=== PATIENT | female | born 1960 | race Native Hawaiian/Other Pacific Islander ===

== ENCOUNTER → 2016-11-05 | Outpatient (CLI) | payer MEDICARE, OTHER ==
[~2016-11-05] MED LIST: AMLO-511 PO; CARV6 PO; CINA30 PO; GLIM4 PO; INSU100C4 SQ; INSU100C6 SQ; LETR2.5T6 PO; LEVO5TAB13 PO; LISI-661 PO; LOVA20TA PO; PHOSLOC PO; SEVEC800 PO
== END | disposition home or self-care (01) ==
LOC: RADPV 14:02
PROVIDERS: ATTEND Family Medicine
DX: R22.0 Localized swelling, mass and lump, head (principal)
CPT/HCPCS: 76536; 76999

== ENCOUNTER 2017-07-11 15:00 | Inpatient (IN) | payer MEDICARE, OTHER ==
[~2017-07-11] VITALS: Ht 152.4 cm; Wt 82.1 kg
[2017-07-11] MEDS ORDERED: IPRATROPIUM BROMIDE 0.5 MG/2.5 ML NEB SOLUTION NEB ONE (15:45)
[2017-07-11] MEDS ORDERED: ALBUTEROL SULFATE 5 MG/ML 20 ML NEB SOLN [BULK] NEB ONE (15:45)
[2017-07-11 16:09] LABS: BASOPHILS # (AUTO) 0.02 K/uL (0.00-0.20); BASOPHILS % (AUTO) 0.2 % (0.0-2.0); EOSINOPHILS # (AUTO) 0.15 K/uL (0.00-0.70); EOSINOPHILS % (AUTO) 1.84 % (1.0-6.0); HEMATOCRIT 34.6 % (36-46); HEMOGLOBIN 11.4 g/dL (12.0-16.0); LYMPHOCYTES # (AUTO) 1.2 K/uL (1.0-4.8); LYMPHOCYTES % (AUTO) 14.8 % (22.0-44.0); MEAN CORPUSCULAR HEMOGLOBIN 31.3 pg (26.0-34.0); MEAN CORPUSCULAR VOLUME 95 fL (80-100); MONOCYTES # (AUTO) 0.8 K/uL (0.1-1.0); MONOCYTES % (AUTO) 10.1 % (2.0-9.0); NEUTROPHILS # (AUTO) 5.9 K/uL (1.8-7.7); NEUTROPHILS % (AUTO) 73.1 % (40.0-70.0); PLATELET COUNT (AUTO) 152 K/uL (150-450); RED BLOOD CELL COUNT(AUTO) 3.65 MIL/uL (4.00-5.20); WHITE BLOOD COUNT (AUTO) 8.1 K/uL (4.5-11.0)
[2017-07-11 16:24] LABS: CALCIUM, TOTAL 9.9 mg/dL (8.8-10.5); CREATININE 13.25 mg/dL (0.60-1.30)
[2017-07-11 16:29] LABS: ALBUMIN 3.6 g/dL (3.4-5.0); BILIRUBIN,TOTAL 0.4 mg/dL (0.1-1.0); INR 1.1 (0.9-1.1); PROTHROMBIN TIME 11.3 SEC (9.4-11.6); TOTAL PROTEIN, SERUM 8.6 g/dL (6.4-8.2)
[2017-07-11] MEDS ORDERED: CefTRIAXone 1 GM/DEXTROSE 50 ML IV ONE (16:45)
[2017-07-11] MEDS ORDERED: CALCIUM GLUCONATE 100 MG/ML 10 ML IVP ONE (17:00)
[2017-07-11] MEDS ORDERED: INSULIN REGULAR, HUMAN 100 UNITS/ML IVP ONE (17:00)
[2017-07-11] MEDS ORDERED: DEXTROSE 50%-WATER 25 GM/50 ML SYRINGE IVP ONE (17:00)
[2017-07-11] MEDS ORDERED: ACETAMINOPHEN 325 MG TABLET PO PRN ×3 (17:15→21:15)
[2017-07-11] MEDS ORDERED: 0.9% SODIUM CHLORIDE 10 ML SYRINGE IVP PRN ×2 (17:15→17:45)
[2017-07-11] MEDS ORDERED: ONDANSETRON HCL 4 MG/2 ML VIAL IVP PRN ×2 (17:15→17:45)
[2017-07-11 17:26] LABS: INFLUENZA TYPE B NEGATIVE FOR TYPE B (NEGATIVE)
[2017-07-11] MEDS ORDERED: SODIUM POLYSTYRENE SULFONATE 15 GM/60 ML SUSPENSION BOTTLE PO ONE (17:30)
[2017-07-11] MEDS ORDERED: OSELTAMIVIR PHOSPHATE 75 MG CAPSULE PO ONE (17:30)
[2017-07-11 20:54] VITALS: BP 130/76
[2017-07-11] MEDS ORDERED: VITAD1000 PO (21:01)
[2017-07-11] MEDS ORDERED: BISACODYL 10 MG RECTAL RECTAL SUPPOSITORY PR PRN (21:15)
[2017-07-11] MEDS ORDERED: OxyCODONE HCL/ACETAMINOPHEN 5-325 MG TABLET PO PRN (21:15)
[2017-07-11] MEDS ORDERED: ALBUTEROL SULFATE 2.5 MG/0.5 ML NEB SOLUTION NEB PRN (21:15)
[2017-07-11] MEDS ORDERED: DEXTROSE 50%-WATER 25 GM/50 ML SYRINGE IVP PRN (21:15)
[2017-07-12 00:18] VITALS: BP 141/84
[2017-07-12 04:13] VITALS: BP 132/20
[2017-07-12] MEDS ORDERED: SODIUM CHLORIDE 0.9% 2,000 ML IV ONE (06:16)
[2017-07-12 07:50] VITALS: BP 155/79
[2017-07-12 11:59] VITALS: BP 130/67
[2017-07-12] MEDS ORDERED: LIDOCAINE HCL/PF 1% 2 ML VIAL ID PRN (13:15)
[2017-07-12] MEDS: PANTOPRAZOLE SODIUM 40 MG DR TABLET PO SCH (13:45)
[2017-07-12] MEDS: SEVELAMER CARBONATE 800 MG TABLET PO SCH ×2 (13:45→18:03)
[2017-07-12] MEDS: HEPARIN SODIUM,PORCINE 5,000 UNITS/ML VIAL SQ SCH ×2 (13:45→20:45)
[2017-07-12] MEDS: DOCUSATE SODIUM 100 MG CAPSULE PO SCH ×2 (13:46→20:46)
[2017-07-12] MEDS: ASPIRIN 81 MG CHEWABLE TABLET PO SCH (13:46)
[2017-07-12] MEDS: AZITHROMYCIN 250 MG TABLET PO SCH (13:46)
[2017-07-12] MEDS: LETROZOLE 2.5 MG TABLET PO SCH (13:46)
[2017-07-12] MEDS: OSELTAMIVIR PHOSPHATE 75 MG CAPSULE PO SCH ×2 (13:46→20:45)
[2017-07-12 15:50] VITALS: BP 150/85
[2017-07-12] MEDS ORDERED: LIDOCAINE HCL/PF 1% 2 ML VIAL IM ONE (17:22)
[2017-07-12] MEDS: CINACALCET HCL 30 MG TABLET PO SCH (18:03)
[2017-07-12 19:42] VITALS: BP 128/82
[2017-07-12] MEDS: ATORVASTATIN CALCIUM 20 MG TABLET PO SCH (20:45)
[2017-07-12] MEDS: INSULIN ASPART 100 UNITS/ML SQ PRN (20:47)
[2017-07-12 22:48] LABS: GLUCOSE,POINT OF CARE 207 MG/DL (70-110)
[2017-07-12 22:48] LABS: GLUCOSE,POINT OF CARE 74 MG/DL (70-110)
[2017-07-12 22:48] LABS: GLUCOSE,POINT OF CARE 146 MG/DL (70-110)
[2017-07-13 00:54] VITALS: BP 138/78
[2017-07-13 04:27] VITALS: BP 144/71
[2017-07-13 05:53] LABS: GLUCOSE,POINT OF CARE 177 MG/DL (70-110)
[2017-07-13 05:53] LABS: GLUCOSE,POINT OF CARE 74 MG/DL (70-110)
[2017-07-13 05:53] LABS: GLUCOSE COMMENT 1 Juice/Food/D50 Given; GLUCOSE,POINT OF CARE 27 MG/DL (70-110)
[2017-07-13 07:07] VITALS: BP 144/84
[2017-07-13] MEDS: SEVELAMER CARBONATE 800 MG TABLET PO SCH ×3 (08:23→17:49)
[2017-07-13] MEDS: LETROZOLE 2.5 MG TABLET PO SCH (08:23)
[2017-07-13] MEDS: AZITHROMYCIN 250 MG TABLET PO SCH (08:23)
[2017-07-13] MEDS: OSELTAMIVIR PHOSPHATE 75 MG CAPSULE PO SCH ×2 (08:23→21:03)
[2017-07-13] MEDS: DOCUSATE SODIUM 100 MG CAPSULE PO SCH ×2 (08:24→21:03)
[2017-07-13] MEDS: ASPIRIN 81 MG CHEWABLE TABLET PO SCH (08:24)
[2017-07-13] MEDS: PANTOPRAZOLE SODIUM 40 MG DR TABLET PO SCH (08:24)
[2017-07-13] MEDS: HEPARIN SODIUM,PORCINE 5,000 UNITS/ML VIAL SQ SCH ×2 (08:25→21:03)
[2017-07-13 09:58] LABS: APPEARANCE,URINE TURBID (CLEAR); GLUCOSE, URINE (UA) NEGATIVE (NEGATIVE); KETONES,URINE NEGATIVE (NEGATIVE); LEUKOCYTE ESTERASE ,URINE LARGE (NEGATIVE); OCCULT BLOOD,URINE LARGE (NEGATIVE); PROTEIN,URINE SEE CONFIRM (NEGATIVE)
[2017-07-13 10:03] LABS: ADD UA MICROSCOPIC YES
[2017-07-13 10:04] LABS: SULFOSALICYLIC ACID,URINE 4+ (Negative); WBC,URINE Full Field /HPF (0-5)
[2017-07-13 10:14] LABS: SQUAMOUS EPITHELIAL CELL,UR Rare /LPF (None Seen)
[2017-07-13 11:36] VITALS: BP 131/75
[2017-07-13] MEDS: INSULIN ASPART 100 UNITS/ML SQ PRN ×2 (12:06→17:53)
[2017-07-13 12:12] LABS: GLUCOSE,POINT OF CARE 114 MG/DL (70-110)
[2017-07-13 12:12] LABS: GLUCOSE,POINT OF CARE 187 MG/DL (70-110)
[2017-07-13 17:23] LABS: GLUCOSE,POINT OF CARE 80 MG/DL (70-110)
[2017-07-13] MEDS: CINACALCET HCL 30 MG TABLET PO SCH (18:16)
[2017-07-13 20:22] VITALS: BP 142/73
[2017-07-13] MEDS ORDERED: SODIUM CHLORIDE 0.9% 250 ML IV ONE (20:58)
[2017-07-13] MEDS: ATORVASTATIN CALCIUM 20 MG TABLET PO SCH (21:03)
[2017-07-13] MEDS: CefTRIAXone 1 GM/DEXTROSE 50 ML IV SCH (21:03)
[2017-07-13 23:38] VITALS: BP 136/75
[2017-07-14 04:58] VITALS: BP 144/79
[2017-07-14 07:27] VITALS: BP 144/69
[2017-07-14] MEDS: OSELTAMIVIR PHOSPHATE 75 MG CAPSULE PO SCH ×2 (08:53→20:36)
[2017-07-14] MEDS: PANTOPRAZOLE SODIUM 40 MG DR TABLET PO SCH (08:53)
[2017-07-14] MEDS: ASPIRIN 81 MG CHEWABLE TABLET PO SCH (08:53)
[2017-07-14] MEDS: AZITHROMYCIN 250 MG TABLET PO SCH (08:54)
[2017-07-14] MEDS: SEVELAMER CARBONATE 800 MG TABLET PO SCH ×3 (08:54→18:22)
[2017-07-14] MEDS: DOCUSATE SODIUM 100 MG CAPSULE PO SCH ×2 (08:55→20:36)
[2017-07-14] MEDS: HEPARIN SODIUM,PORCINE 5,000 UNITS/ML VIAL SQ SCH ×2 (08:55→20:36)
[2017-07-14] MEDS: LETROZOLE 2.5 MG TABLET PO SCH (08:56)
[2017-07-14 11:37] VITALS: BP 120/61
[2017-07-14] MEDS: INSULIN ASPART 100 UNITS/ML SQ PRN (12:11)
[2017-07-14] MEDS ORDERED: SODIUM CHLORIDE 0.9% 2,000 ML IV ONE (14:35)
[2017-07-14] MEDS ORDERED: LIDOCAINE HCL/PF 1% 2 ML VIAL ID PRN (15:00)
[2017-07-14 15:37] VITALS: BP 141/70
[2017-07-14 18:07] LABS: GLUCOSE,POINT OF CARE 150 MG/DL (70-110)
[2017-07-14] MEDS: CINACALCET HCL 30 MG TABLET PO SCH (18:22)
[2017-07-14 19:46] VITALS: BP 109/54
[2017-07-14] MEDS: ATORVASTATIN CALCIUM 20 MG TABLET PO SCH (20:36)
[2017-07-14] MEDS: CefTRIAXone 1 GM/DEXTROSE 50 ML IV SCH (20:37)
[2017-07-14 21:48] LABS: GLUCOSE,POINT OF CARE 103 MG/DL (70-110)
[2017-07-14 23:42] VITALS: BP 127/71
[2017-07-15 04:10] VITALS: BP 147/83
[2017-07-15 07:18] VITALS: BP 134/60
[2017-07-15 07:33] LABS: GLUCOSE,POINT OF CARE 160 MG/DL (70-110)
[2017-07-15 07:33] LABS: GLUCOSE COMMENT 1 Received Meds; GLUCOSE,POINT OF CARE 260 MG/DL (70-110)
[2017-07-15 07:33] LABS: GLUCOSE,POINT OF CARE 174 MG/DL (70-110)
[2017-07-15] MEDS: OSELTAMIVIR PHOSPHATE 75 MG CAPSULE PO SCH ×2 (08:31→21:27)
[2017-07-15] MEDS: ASPIRIN 81 MG CHEWABLE TABLET PO SCH (08:31)
[2017-07-15] MEDS: AZITHROMYCIN 250 MG TABLET PO SCH (08:31)
[2017-07-15] MEDS: SEVELAMER CARBONATE 800 MG TABLET PO SCH ×3 (08:31→17:42)
[2017-07-15] MEDS: PANTOPRAZOLE SODIUM 40 MG DR TABLET PO SCH (08:32)
[2017-07-15] MEDS: DOCUSATE SODIUM 100 MG CAPSULE PO SCH ×2 (08:33→21:28)
[2017-07-15] MEDS: LETROZOLE 2.5 MG TABLET PO SCH (08:33)
[2017-07-15] MEDS: HEPARIN SODIUM,PORCINE 5,000 UNITS/ML VIAL SQ SCH (08:33)
[2017-07-15 10:58] VITALS: BP 151/77
[2017-07-15] MEDS: INSULIN ASPART 100 UNITS/ML SQ PRN ×2 (11:47→17:44)
[2017-07-15] MEDS ORDERED: LIDOCAINE HCL/PF 1% 2 ML VIAL INJ ONE (12:00)
[2017-07-15 14:04] LABS: BASOPHILS % (AUTO) 0.5 % (0.0-2.0); EOSINOPHILS % (AUTO) 3.9 % (1.0-6.0); HEMATOCRIT 33.3 % (36-46); HEMOGLOBIN 11.5 g/dL (12.0-16.0); LYMPHOCYTES # (AUTO) 2.4 K/uL (1.0-4.8); LYMPHOCYTES % (AUTO) 46.2 % (22.0-44.0); MEAN CORPUSCULAR HEMOGLOBIN 31.8 pg (26.0-34.0); MEAN CORPUSCULAR HGB CONC 34.6 G/dL (31.0-37.0); MEAN CORPUSCULAR VOLUME 92 fL (80-100); MONOCYTES # (AUTO) 0.6 K/uL (0.1-1.0); MONOCYTES % (AUTO) 10.9 % (2.0-9.0); NEUTROPHILS % (AUTO) 38.5 % (40.0-70.0); PLATELET COUNT (AUTO) 204 K/uL (150-450); RED BLOOD CELL COUNT(AUTO) 3.63 MIL/uL (4.00-5.20); RED CELL DISTRIBUTION WIDTH 15.1 % (11.5-14.5); WHITE BLOOD COUNT (AUTO) 5.2 K/uL (4.5-11.0)
[2017-07-15] MEDS ORDERED: LEVO250 PO (15:01)
[2017-07-15] MEDS ORDERED: ASPI-1182 PO (15:01)
[2017-07-15] MEDS ORDERED: OSEL75 PO (15:01)
[2017-07-15] MEDS ORDERED: HEPARIN SODIUM 25000 UNITS/D5W 250 ML IV PRN (15:18)
[2017-07-15] MEDS ORDERED: CARV12 PO (15:27)
[2017-07-15] MEDS ORDERED: HEPARIN SODIUM,PORCINE 5,000 UNITS/ML VIAL IVP ONE (15:30)
[2017-07-15] MEDS ORDERED: HEPARIN SODIUM,PORCINE 5,000 UNITS/ML VIAL IVP PRN ×2 (15:30)
[2017-07-15 15:40] LABS: BASOPHILS % (AUTO) 0.4 % (0.0-2.0); HEMATOCRIT 32.8 % (36-46); HEMOGLOBIN 11.4 g/dL (12.0-16.0); LYMPHOCYTES # (AUTO) 2.3 K/uL (1.0-4.8); LYMPHOCYTES % (AUTO) 47.5 % (22.0-44.0); MEAN CORPUSCULAR HEMOGLOBIN 32.1 pg (26.0-34.0); MEAN CORPUSCULAR HGB CONC 34.8 G/dL (31.0-37.0); MEAN CORPUSCULAR VOLUME 92 fL (80-100); MONOCYTES # (AUTO) 0.7 K/uL (0.1-1.0); MONOCYTES % (AUTO) 14.3 % (2.0-9.0); NEUTROPHILS # (AUTO) 1.6 K/uL (1.8-7.7); NEUTROPHILS % (AUTO) 33.8 % (40.0-70.0); PLATELET COUNT (AUTO) 208 K/uL (150-450); RED BLOOD CELL COUNT(AUTO) 3.55 MIL/uL (4.00-5.20); RED CELL DISTRIBUTION WIDTH 15.3 % (11.5-14.5); WHITE BLOOD COUNT (AUTO) 4.8 K/uL (4.5-11.0)
[2017-07-15 15:50] LABS: CALCIUM, TOTAL 9.5 mg/dL (8.8-10.5); CREATININE 9.29 mg/dL (0.60-1.30); MAGNESIUM 2.1 mg/dL (1.80-2.40); POTASSIUM 4.5 mmol/L (3.5-5.1)
[2017-07-15 15:51] VITALS: BP 150/81
[2017-07-15 15:54] LABS: PROTHROMBIN TIME 10.8 SEC (9.4-11.6)
[2017-07-15] MEDS: CINACALCET HCL 30 MG TABLET PO SCH (18:18)
[2017-07-15 19:44] VITALS: BP 155/94
[2017-07-15] MEDS: ATORVASTATIN CALCIUM 20 MG TABLET PO SCH (21:28)
[2017-07-15 23:26] VITALS: BP 109/51
[2017-07-16] VITALS (7 sets, daily range): BP systolic 102–157; BP diastolic 55–101
[2017-07-16] MEDS: INSULIN ASPART 100 UNITS/ML SQ PRN ×3 (00:37→12:39)
[2017-07-16] MEDS ORDERED: SODIUM CHLORIDE 0.9% 250 ML IV ONE (01:09)
[2017-07-16] MEDS: CefTRIAXone 1 GM/DEXTROSE 50 ML IV SCH ×2 (01:16→17:59)
[2017-07-16 03:39] LABS: BASOPHILS # (AUTO) 0.03 K/uL (0.00-0.20); BASOPHILS % (AUTO) 0.4 % (0.0-2.0); EOSINOPHILS # (AUTO) 0.24 K/uL (0.00-0.70); EOSINOPHILS % (AUTO) 3.68 % (1.0-6.0); HEMATOCRIT 29.6 % (36-46); HEMOGLOBIN 10.1 g/dL (12.0-16.0); LYMPHOCYTES # (AUTO) 2.6 K/uL (1.0-4.8); LYMPHOCYTES % (AUTO) 40.7 % (22.0-44.0); MEAN CORPUSCULAR HEMOGLOBIN 31.8 pg (26.0-34.0); MEAN CORPUSCULAR HGB CONC 34.1 G/dL (31.0-37.0); MEAN CORPUSCULAR VOLUME 93 fL (80-100); MONOCYTES # (AUTO) 0.8 K/uL (0.1-1.0); MONOCYTES % (AUTO) 12.8 % (2.0-9.0); NEUTROPHILS # (AUTO) 2.7 K/uL (1.8-7.7); NEUTROPHILS % (AUTO) 42.3 % (40.0-70.0); PLATELET COUNT (AUTO) 197 K/uL (150-450); RED BLOOD CELL COUNT(AUTO) 3.18 MIL/uL (4.00-5.20); WHITE BLOOD COUNT (AUTO) 6.4 K/uL (4.5-11.0)
[2017-07-16] MEDS: SEVELAMER CARBONATE 800 MG TABLET PO SCH ×3 (08:00→17:59)
[2017-07-16] MEDS ORDERED: IOHEXOL 300 MG/ML 150 ML VIAL ONE (09:14)
[2017-07-16] MEDS ORDERED: SODIUM BICARBONATE 50 MEQ/50 ML VIAL ONE (09:14)
[2017-07-16] MEDS ORDERED: LIDOCAINE HCL/PF 1% 30 ML VIAL ONE (09:14)
[2017-07-16] MEDS ORDERED: FentaNYL CITRATE-PF 100 MCG/2 ML VIAL ONE (10:15)
[2017-07-16] MEDS ORDERED: MIDAZOLAM HCL 2 MG/2 ML VIAL ONE (10:15)
[2017-07-16] MEDS ORDERED: HEPARIN SODIUM 1000 UNITS/NS 1,000 ML IARTER ONE (10:21)
[2017-07-16] MEDS ORDERED: SODIUM CHLORIDE 0.9% 500 ML IV ONE (10:21)
[2017-07-16] MEDS ORDERED: MIDAZOLAM HCL 2 MG/2 ML VIAL IVP ONE (10:30)
[2017-07-16] MEDS ORDERED: FentaNYL CITRATE-PF 100 MCG/2 ML VIAL IVP ONE (10:30)
[2017-07-16] MEDS ORDERED: LIDOCAINE 1% 30 ML/SOD BICARB 8.4% 4 ML SQ ONE (10:30)
[2017-07-16] MEDS ORDERED: IOHEXOL 300 MG/ML 150 ML VIAL IARTER ONE (10:30)
[2017-07-16 11:59] LABS: GLUCOSE,POINT OF CARE 125 MG/DL (70-110)
[2017-07-16 11:59] LABS: GLUCOSE,POINT OF CARE 184 MG/DL (70-110)
[2017-07-16 11:59] LABS: GLUCOSE COMMENT 1 Received Meds; GLUCOSE,POINT OF CARE 316 MG/DL (70-110)
[2017-07-16] MEDS ORDERED: LIDOCAINE HCL/PF 1% 2 ML VIAL INJ ONE (12:00)
[2017-07-16 12:27] LABS: GLUCOSE COMMENT 1 Received Meds; GLUCOSE,POINT OF CARE 284 MG/DL (70-110)
[2017-07-16] MEDS: PANTOPRAZOLE SODIUM 40 MG DR TABLET PO SCH (12:36)
[2017-07-16] MEDS: DOCUSATE SODIUM 100 MG CAPSULE PO SCH (12:36)
[2017-07-16] MEDS: ASPIRIN 81 MG CHEWABLE TABLET PO SCH (12:36)
[2017-07-16] MEDS: LETROZOLE 2.5 MG TABLET PO SCH (12:37)
[2017-07-16] MEDS: OSELTAMIVIR PHOSPHATE 75 MG CAPSULE PO SCH ×2 (12:37→20:52)
[2017-07-16] MEDS: AZITHROMYCIN 250 MG TABLET PO SCH (12:38)
[2017-07-16] MEDS ORDERED: EPOETIN ALFA 10,000 UNITS/ML 2 ML VIAL SQ SCH (14:00)
[2017-07-16] MEDS: CINACALCET HCL 30 MG TABLET PO SCH (17:59)
[2017-07-16] MEDS ORDERED: LIDOCAINE HCL/PF 1% 2 ML VIAL ID PRN (18:15)
[2017-07-16 18:56] LABS: AMYLASE 110 U/L (25-115)
[2017-07-16 19:47] LABS: GLUCOSE COMMENT 1 Received Meds; GLUCOSE,POINT OF CARE 181 MG/DL (70-110)
[2017-07-16 19:47] LABS: GLUCOSE,POINT OF CARE 132 MG/DL (70-110)
[2017-07-16 19:47] LABS: GLUCOSE,POINT OF CARE 178 MG/DL (70-110)
[2017-07-16 20:42] LABS: GLUCOSE,POINT OF CARE 248 MG/DL (70-110)
[2017-07-16 20:42] LABS: GLUCOSE,POINT OF CARE 191 MG/DL (70-110)
[2017-07-16] MEDS: ATORVASTATIN CALCIUM 20 MG TABLET PO SCH (20:51)
[2017-07-16] MEDS ORDERED: METOPROLOL TARTRATE 25 MG TABLET PO SCH (21:00)
== END 2017-07-16 21:10 | disposition short-term general hospital (02) | DRG 280 ==
LOC: EMS 15:01 → 5S 19:02 → UNDOADMIN 19:06
PROVIDERS: ADMIT Internal Medicine; ATTEND Internal Medicine
PROC: 5A1D70Z Performance of Urinary Filtration, Intermittent, Less than 6 Hours Per Day (ICD-10-PCS; 2017-07-12)
PROC: 5A1D70Z Performance of Urinary Filtration, Intermittent, Less than 6 Hours Per Day (ICD-10-PCS; 2017-07-14)
PROC: 4A023N7 Measurement of Cardiac Sampling and Pressure, Left Heart, Percutaneous Approach (ICD-10-PCS; principal; 2017-07-16)
PROC: B2111ZZ Fluoroscopy of Multiple Coronary Arteries using Low Osmolar Contrast (ICD-10-PCS; 2017-07-16)
PROC: B41F1ZZ Fluoroscopy of Right Lower Extremity Arteries using Low Osmolar Contrast (ICD-10-PCS; 2017-07-16)
PROC: B2151ZZ Fluoroscopy of Left Heart using Low Osmolar Contrast (ICD-10-PCS; 2017-07-16)
PROC: 5A1D70Z Performance of Urinary Filtration, Intermittent, Less than 6 Hours Per Day (ICD-10-PCS; 2017-07-16)
DX: I21.4 Non-ST elevation (NSTEMI) myocardial infarction (principal); J10.00 Influenza due to other identified influenza virus with unspecified type of pneumonia; N18.6 End stage renal disease; E11.21 Type 2 diabetes mellitus with diabetic nephropathy; I13.2 Hypertensive heart and chronic kidney disease with heart failure and with stage 5 chronic kidney disease, or end stage renal disease; I50.21 Acute systolic (congestive) heart failure; I07.1 Rheumatic tricuspid insufficiency; N25.81 Secondary hyperparathyroidism of renal origin; E87.5 Hyperkalemia; E11.22 Type 2 diabetes mellitus with diabetic chronic kidney disease; E66.9 Obesity, unspecified; E78.00 Pure hypercholesterolemia, unspecified; I34.0 Nonrheumatic mitral (valve) insufficiency; E78.5 Hyperlipidemia, unspecified; I25.10 Atherosclerotic heart disease of native coronary artery without angina pectoris; G47.00 Insomnia, unspecified; I44.0 Atrioventricular block, first degree; I25.5 Ischemic cardiomyopathy; Z82.49 Family history of ischemic heart disease and other diseases of the circulatory system; Z83.3 Family history of diabetes mellitus; Z87.891 Personal history of nicotine dependence; Z90.11 Acquired absence of right breast and nipple; Z92.21 Personal history of antineoplastic chemotherapy; Z99.2 Dependence on renal dialysis; Z79.4 Long term (current) use of insulin; Z85.3 Personal history of malignant neoplasm of breast; Z68.35 Body mass index [BMI] 35.0-35.9, adult; Z79.82 Long term (current) use of aspirin; Z90.49 Acquired absence of other specified parts of digestive tract
CPT/HCPCS: 82271; 82962; 83735; 87040; 87081; 87086; 87340; 87804; 90935; 93005; 93306; 94060; 94644; 96374; 96375; 99285; J0610; J0696; J0885; J1644; J1815; J2250; J3010; J3490; J7030; J7050; Q9967

== ENCOUNTER 2017-10-08 14:04 | Emergency (ER) | payer MEDICARE, OTHER ==
[~2017-10-08] VITALS: Ht 152.4 cm; Wt 82.0 kg
[~2017-10-08 14:04] MED LIST changes: +ASPI-1182 PO; +CARV12 PO; -CARV6 PO; +LEVO250 PO; +OSEL75 PO; +VITAD1000 PO
[2017-10-08 14:18] LABS: GLUCOSE,POINT OF CARE 385 MG/DL (70-110)
[2017-10-08] MEDS ORDERED: FERR-89 PO (14:25)
[2017-10-08] MEDS ORDERED: METO25XL PO (14:25)
[2017-10-08 18:20] VITALS: BP 159/76
== END 2017-10-08 18:52 | disposition home or self-care (01) ==
LOC: EMS 14:07
DX: I13.11 Hypertensive heart and chronic kidney disease without heart failure, with stage 5 chronic kidney disease, or end stage renal disease (principal); E11.22 Type 2 diabetes mellitus with diabetic chronic kidney disease; N18.6 End stage renal disease; E78.00 Pure hypercholesterolemia, unspecified; Z87.891 Personal history of nicotine dependence; Z99.2 Dependence on renal dialysis; Z79.4 Long term (current) use of insulin; Z79.82 Long term (current) use of aspirin; Z90.11 Acquired absence of right breast and nipple
CPT/HCPCS: 82962; 93005; 99284

== ENCOUNTER 2018-07-13 20:02 | Emergency (ER) | payer MEDICARE, OTHER ==
[~2018-07-13] VITALS: Ht 152.4 cm; Wt 77.6 kg
[~2018-07-13 20:02] MED LIST changes: -CARV12 PO; +CLIN300C3 PO; -GLIM4 PO; -INSU100C6 SQ; -LETR2.5T6 PO; -LEVO250 PO; -LEVO5TAB13 PO; -LISI-661 PO; -LOVA20TA PO; +METO25XL PO; -OSEL75 PO
[2018-07-13 20:18] LABS: GLUCOSE,POINT OF CARE 344 MG/DL (70-110)
[2018-07-13] MEDS ORDERED: SIMV40TA5 PO (20:22)
[2018-07-13] MEDS ORDERED: CLOP75 PO (20:22)
[2018-07-13] MEDS ORDERED: FOLI0.8T22 PO (20:22)
[2018-07-13] MEDS ORDERED: LISI5TAB PO (20:22)
[2018-07-13] MEDS ORDERED: CINA60TA PO (20:22)
[2018-07-13] MEDS ORDERED: DILT60TA3 PO (20:22)
[2018-07-13] MEDS ORDERED: LETR2.5T6 PO (20:22)
[2018-07-13 22:24] LABS: GLUCOSE,POINT OF CARE 345 MG/DL (70-110)
[2018-07-13] MEDS ORDERED: HYDROCODONE/ACETAMINOPHEN 5-325 MG TABLET PO ONE (22:30)
[2018-07-13] MEDS ORDERED: CYCLOBENZAPRINE HCL 10 MG TABLET PO ONE (22:30)
[2018-07-13 23:24] LABS: GLUCOSE,POINT OF CARE 407 MG/DL (70-110)
[2018-07-13 23:34] VITALS: BP 155/78
== END 2018-07-14 00:01 | disposition home or self-care (01) ==
LOC: EMS 20:04
DX: G44.209 Tension-type headache, unspecified, not intractable (principal); I12.0 Hypertensive chronic kidney disease with stage 5 chronic kidney disease or end stage renal disease; E11.22 Type 2 diabetes mellitus with diabetic chronic kidney disease; N18.6 End stage renal disease; E78.00 Pure hypercholesterolemia, unspecified; Z99.2 Dependence on renal dialysis; Z79.4 Long term (current) use of insulin; Z79.82 Long term (current) use of aspirin; Z79.899 Other long term (current) drug therapy; Z85.3 Personal history of malignant neoplasm of breast; Z90.11 Acquired absence of right breast and nipple; Z87.891 Personal history of nicotine dependence

== ENCOUNTER → 2019-01-11 | Outpatient (CLI) | payer MEDICARE, OTHER ==
[~2019-01-11] MED LIST changes: -AMLO-511 PO; +AMLO5TAB9 PO; +CINA60TA PO; -CLIN300C3 PO; +CLOP75TA3 PO; +DILT60TA3 PO; +FOLI0.8T22 PO; +LETR2.5T6 PO; +LISI5TAB PO; +SIMV40TA5 PO
== END | disposition home or self-care (01) ==
LOC: RADPV 10:19
PROVIDERS: ATTEND Internal Medicine Cardiovascular Disease
DX: R05 Cough (principal); I51.7 Cardiomegaly; I70.0 Atherosclerosis of aorta

== ENCOUNTER → 2019-12-22 | Outpatient (CLI) | payer MEDICARE, OTHER ==
[~2019-12-22] MED LIST changes: +ASPI-1111 PO; -ASPI-1182 PO; +CHOL100018 PO; -LETR2.5T6 PO; +LETR2.5T7 PO; +SEVE800T17 PO; -SEVEC800 PO; +SIMV-46 PO; -SIMV40TA5 PO; -VITAD1000 PO
== END | disposition home or self-care (01) ==
LOC: RADPV 10:11
PROVIDERS: ATTEND Internal Medicine Nephrology
DX: R76.11 Nonspecific reaction to tuberculin skin test without active tuberculosis (principal); Z95.818 Presence of other cardiac implants and grafts

== ENCOUNTER 2019-12-25 16:15 | Emergency (ER) | payer MEDICARE, OTHER ==
[~2019-12-25] VITALS: Ht 160 cm; Wt 100.0 kg
[2019-12-25 17:49] LABS: BASOPHILS % (AUTO) 0.8 % (0.0-2.0); EOSINOPHILS % (AUTO) 3.5 % (1.0-6.0); HEMATOCRIT 32.8 % (36-46); HEMOGLOBIN 10.9 g/dL (12.0-16.0); LYMPHOCYTES # (AUTO) 1.8 K/uL (1.0-4.8); LYMPHOCYTES % (AUTO) 20.9 % (22.0-44.0); MEAN CORPUSCULAR HEMOGLOBIN 31.7 pg (26.0-34.0); MEAN CORPUSCULAR HGB CONC 33.2 G/dL (31.0-37.0); MEAN CORPUSCULAR VOLUME 95 fL (80-100); MONOCYTES # (AUTO) 0.8 K/uL (0.1-1.0); MONOCYTES % (AUTO) 8.7 % (2.0-9.0); NEUTROPHILS # (AUTO) 5.7 K/uL (1.8-7.7); NEUTROPHILS % (AUTO) 66.1 % (40.0-70.0); PLATELET COUNT (AUTO) 157 K/uL (150-450); RED BLOOD CELL COUNT(AUTO) 3.44 MIL/uL (4.00-5.20); RED CELL DISTRIBUTION WIDTH 14.1 % (11.5-14.5)
[2019-12-25] MEDS ORDERED: CALCIUM GLUCONATE 0.465 MEQ/ML 10 ML VIAL IVP ONE (18:15)
[2019-12-25 18:19] LABS: ALBUMIN 3.8 g/dL (3.4-5.0); BILIRUBIN,TOTAL 0.7 mg/dL (0.1-1.0); CALCIUM, TOTAL 8.1 mg/dL (8.8-10.5); CREATININE 16.04 mg/dL (0.60-1.30); TOTAL PROTEIN, SERUM 8.3 g/dL (6.4-8.2)
[2019-12-25 18:31] LABS: POTASSIUM 6.9 mmol/L (3.5-5.1)
[2019-12-25] MEDS: SODIUM BICARBONATE [ADULT] 8.4% 50 MEQ/50 ML SYRINGE IVP ONE ×2 (18:45→19:06)
[2019-12-25] MEDS ORDERED: SODIUM ZIRCONIUM CYCLOSILICATE 5 GM POWDER PACKET PO ONE (18:45)
[2019-12-25] MEDS ORDERED: CALCIUM GLUCONATE 100 MG/ML 10 ML IVP ONE (18:45)
[2019-12-25] MEDS: FUROSEMIDE 40 MG/4 ML VIAL IVP ONE ×2 (18:45→19:08)
[2019-12-25] MEDS ORDERED: DEXTROSE 50%-WATER 25 GM/50 ML SYRINGE IVP ONE (18:45)
[2019-12-25] MEDS ORDERED: INSULIN REGULAR, HUMAN 100 UNITS/ML IVP ONE (18:45)
[2019-12-25 19:09] LABS: GLUCOSE,POINT OF CARE 159 MG/DL (70-110)
[2019-12-25] MEDS ORDERED: ASPIRIN 325 MG TABLET PO ONE (20:15)
[2019-12-25] MEDS ORDERED: 0.9% SODIUM CHLORIDE 10 ML SYRINGE IVP PRN (20:30)
[2019-12-25] MEDS ORDERED: ONDANSETRON HCL 4 MG/2 ML VIAL IVP PRN ×2 (20:30→22:00)
[2019-12-25] MEDS ORDERED: ACETAMINOPHEN 325 MG TABLET PO PRN ×2 (20:30→22:00)
[2019-12-25 21:30] LABS: C-REACTIVE PROTEIN QUANT 0.15 mg/dL (0.00-0.30)
[2019-12-25] MEDS ORDERED: MORPHINE SULFATE 2 MG/ML SYRINGE IVP PRN (22:00)
[2019-12-25] MEDS ORDERED: BISACODYL 10 MG RECTAL RECTAL SUPPOSITORY PR PRN (22:00)
[2019-12-25] MEDS ORDERED: MAGNESIUM HYDROXIDE SUSPENSION 30 ML UDCUP PO PRN (22:00)
[2019-12-25] MEDS ORDERED: ZOLPIDEM TARTRATE 5 MG TABLET PO PRN (22:00)
[2019-12-25] MEDS ORDERED: HYDROCODONE/ACETAMINOPHEN 5-325 MG TABLET PO PRN (22:00)
[2019-12-25] MEDS ORDERED: MetroNIDAZOLE 500 MG/NACL 100 ML IV SCH (22:00)
[2019-12-26] MEDS ORDERED: HEPARIN SODIUM,PORCINE 5,000 UNITS/ML VIAL SQ SCH
[2019-12-26 01:00] VITALS: BP 148/74
[2019-12-26 01:22] LABS: CALCIUM, TOTAL 8.9 mg/dL (8.8-10.5); CREATININE 8.13 mg/dL (0.60-1.30); POTASSIUM 3.1 mmol/L (3.5-5.1)
[2019-12-26 01:29] LABS: ALBUMIN 3.5 g/dL (3.4-5.0); TOTAL PROTEIN, SERUM 8.1 g/dL (6.4-8.2)
[2019-12-26] MEDS ORDERED: SEVELAMER CARBONATE 800 MG TABLET PO SCH (08:00)
[2019-12-26] MEDS ORDERED: CALCIUM ACETATE 667 MG CAPSULE PO SCH (08:00)
[2019-12-26] MEDS ORDERED: CHOLECALCIFEROL (VIT D3) 1,000 UNITS [25 MCG] TABLET PO SCH (09:00)
[2019-12-26] MEDS ORDERED: METOPROLOL SUCCINATE 25 MG ER TABLET PO SCH (09:00)
[2019-12-26] MEDS ORDERED: DOCUSATE SODIUM 100 MG CAPSULE PO SCH (09:00)
[2019-12-26] MEDS ORDERED: VITAMIN B COMP/VIT C/FOLIC ACID CAPSULE PO SCH (09:00)
[2019-12-26] MEDS ORDERED: DILTIAZEM HCL 60 MG TABLET PO SCH (09:00)
[2019-12-26] MEDS ORDERED: CLOPIDOGREL BISULFATE 75 MG TABLET PO SCH (09:00)
[2019-12-26] MEDS ORDERED: PANTOPRAZOLE SODIUM 40 MG DR TABLET PO SCH (09:00)
[2019-12-26] MEDS ORDERED: ASPIRIN 81 MG EC TABLET PO SCH (09:00)
[2019-12-26] MEDS ORDERED: AmLODIPine BESYLATE 5 MG TABLET PO SCH (09:00)
[2019-12-26] MEDS ORDERED: CINACALCET HCL 30 MG TABLET PO SCH (17:30)
[2019-12-26] MEDS ORDERED: INSULIN GLARGINE,HUM.REC.ANLOG 100 UNITS/ML SQ SCH (21:00)
[2019-12-26] MEDS ORDERED: SIMVASTATIN 40 MG TABLET PO SCH (21:00)
[2019-12-26] MEDS ORDERED: [UNRECOGNIZED DRUG - OTHER] PO SCH (21:00)
== END 2019-12-26 02:15 | disposition left against medical advice (07) ==
LOC: EMS 16:16
DX: K56.7 Ileus, unspecified (principal); I13.11 Hypertensive heart and chronic kidney disease without heart failure, with stage 5 chronic kidney disease, or end stage renal disease; E11.22 Type 2 diabetes mellitus with diabetic chronic kidney disease; N18.6 End stage renal disease; E87.5 Hyperkalemia; R79.89 Other specified abnormal findings of blood chemistry; R19.7 Diarrhea, unspecified; F17.210 Nicotine dependence, cigarettes, uncomplicated; Z99.2 Dependence on renal dialysis; Z79.4 Long term (current) use of insulin; Z79.899 Other long term (current) drug therapy
CPT/HCPCS: 36415; 71045; 74176; 80053; 82728; 82962; 83615; 83880; 84484; 85025; 85379; 86140; 93005; 96365; 96375; 99291; J0610; J1644; J1815; J1940; J3490 ×2

== ENCOUNTER 2022-05-04 07:03 | Emergency (ER) | payer MEDICARE, MEDICAID ==
[~2022-05-04] VITALS: Ht 152.4 cm; Wt 80.0 kg
[~2022-05-04 07:03] MED LIST changes: +AMLO-257 PO; -AMLO5TAB9 PO; -ASPI-1111 PO; +ASPI-1444 PO; -CLOP75TA3 PO; +CLOP75TA60 PO
[2022-05-04 08:01] LABS: BASOPHILS % (AUTO) 1.2 % (0.0-2.0); EOSINOPHILS % (AUTO) 6.8 % (1.0-6.0); HEMOGLOBIN 10.5 g/dL (12.0-16.0); LYMPHOCYTES # (AUTO) 0.8 K/uL (1.0-4.8); LYMPHOCYTES % (AUTO) 16.4 % (22.0-44.0); MEAN CORPUSCULAR HEMOGLOBIN 31.4 pg (26.0-34.0); MEAN CORPUSCULAR HGB CONC 32.7 G/dL (31.0-37.0); MEAN CORPUSCULAR VOLUME 96 fL (80-100); MONOCYTES # (AUTO) 0.6 K/uL (0.1-1.0); NEUTROPHILS % (AUTO) 62.6 % (40.0-70.0); RED BLOOD CELL COUNT(AUTO) 3.34 MIL/uL (4.00-5.20); RED CELL DISTRIBUTION WIDTH 16.5 % (11.5-14.5)
[2022-05-04 08:09] LABS: PLATELET COUNT (AUTO) 100 K/uL (150-450)
[2022-05-04 08:24] LABS: ALBUMIN 2.6 g/dL (3.4-5.0); BILIRUBIN,TOTAL 1.7 mg/dL (0.1-1.0); CALCIUM, TOTAL 8.4 mg/dL (8.8-10.5); CREATININE 10.13 mg/dL (0.60-1.30); POTASSIUM 3.9 mmol/L (3.5-5.1); TOTAL PROTEIN, SERUM 7.7 g/dL (6.4-8.2)
[2022-05-04 08:26] LABS: LACTIC ACID 1.6 mmol/L (0.4-2.0)
[2022-05-04 08:29] LABS: HEMOGLOBIN A1C 10.4 % (3.8-5.6)
[2022-05-04] MEDS ORDERED: INSULIN REGULAR, HUMAN 100 UNITS/ML SQ ONE (08:30)
[2022-05-04] MEDS ORDERED: OxyCODONE HCL/ACETAMINOPHEN 5-325 MG TABLET PO ONE (08:45)
[2022-05-04 09:00] VITALS: BP 158/78
[2022-05-04 10:11] LABS: GLUCOSE,POINT OF CARE 358 MG/DL (70-110)
[2022-05-04] MEDS ORDERED: GLIP5TAB12 PO (10:27)
[2022-05-04 10:51] LABS: GLUCOSE,POINT OF CARE 378 MG/DL (70-110)
[2022-05-04] MEDS ORDERED: LISI-893 PO (11:46)
[2022-05-04] MEDS ORDERED: CHOL25TA4 PO (11:46)
[2022-05-04] MEDS ORDERED: DILT90SR PO (11:46)
== END 2022-05-04 11:25 | disposition home or self-care (01) ==
LOC: EMS 07:04
DX: M79.604 Pain in right leg (principal); E11.65 Type 2 diabetes mellitus with hyperglycemia; E78.00 Pure hypercholesterolemia, unspecified; I12.0 Hypertensive chronic kidney disease with stage 5 chronic kidney disease or end stage renal disease; E11.22 Type 2 diabetes mellitus with diabetic chronic kidney disease; K80.80 Other cholelithiasis without obstruction; Z87.441 Personal history of nephrotic syndrome; Z99.2 Dependence on renal dialysis; Z98.890 Other specified postprocedural states; Z90.11 Acquired absence of right breast and nipple
CPT/HCPCS: 99285; 71045; 80053; 82962; 83036; 83605; 85025; 36415; 93005; J1815